=== PATIENT | male | born 1995 | race Hispanic/Latino ===

== ENCOUNTER 2018-08-08 21:52 | Outpatient (REF) | payer SELFPAY ==
[2018-08-08 19:08] VITALS: BP 122/76; PULSE 77; RESP 16; TEMP 36.8; O2SAT 99; BMI 22.2
--- NOTE | 2018-08-08 19:18 | CT_ITS ---
STUDY: CT BRAIN WITHOUT CONTRAST REASON FOR EXAM: Male, 23 years old. Trauma . Tried to strangle himself with a T-shirt RADIATION DOSAGE (If Supplied By Facility): CTDIvol = ( 44.99 ) mGy, DLP = ( 829.85 ) mGycm TECHNIQUE: Transaxial CT imaging of the brain was performed without administration of intravenous contrast material. Individualized dose optimization techniques were used for this CT. COMPARISON: None. FINDINGS: Normal soft tissue structures. Normal calvarium. Normal size ventricles and extra-axial spaces for the patient's age. Normal white matter tracts of the cerebral hemispheres. Normal basal ganglia and thalami. Normal brainstem. Normal cerebellum. There is no intracranial hemorrhage. There are no findings of an acute ischemic infarction. Normal visualized paranasal sinuses. CT/Brain/Head without Contrast IMPRESSION: Normal unenhanced CT scan of the brain. Electronically Signed: Asim Barnes MD at 20:56 EDT , Service support ,
--- NOTE | 2018-08-08 19:18 | CT_ITS ---
STUDY: CTA NECK WITH CONTRAST REASON FOR EXAM: Male, 23 years old. Trauma . Tried to strangle himself with a T-shirt. Suicidal ideation RADIATION DOSAGE (If Supplied By Facility): CTDIvol = ( 20.73 ) mGy, DLP = ( 579.01 ) mGycm Individualized dose optimization techniques were used for this CT. TECHNIQUE: CT angiography with multi-detector data acquisition was performed from the aortic arch to the skull base following intravenous administration of 100ML ml of Isovue 370 contrast. MIP images were reconstructed from the axial data set. Post-processing of the angiographic images was performed, with multiplanar reformation and 3D reconstruction. MIPS images obtained COMPARISON: None. FINDINGS: AORTIC ARCH: Normal visualized aortic arch. Normal origins of the brachiocephalic, left common carotid, and left subclavian arteries. RIGHT CAROTID ARTERIES: Normal right common carotid artery (CCA). Normal right common carotid bulb. Normal origin of the right internal carotid (ICA) artery without a hemodynamically significant stenosis. Normal visualized cervical portion of the right internal carotid artery. Normal origin of the right external carotid artery (ECA). LEFT CAROTID ARTERIES: Normal left common carotid artery (CCA). Normal left common carotid bulb. Normal origin of the left internal carotid (ICA) artery without a hemodynamically significant stenosis. Normal visualized cervical portion of the left internal carotid artery. Normal origin of the left external carotid artery (ECA). VERTEBRAL ARTERIES: Normal bilateral vertebral arteries. CT/CTA Neck W/WO Contrast IMPRESSION: Normal bilateral cervical carotid and vertebral arteries. ALL ABOVE CRITERIA BY NASCET. No evidence for vascular injury. Electronically Signed: Asim Barnes MD at 20:57 EDT , Service support ,
--- NOTE | 2018-08-08 19:18 | EKG12_ITS ---
Test Reason : MHC Blood Pressure : / mmHG Vent. Rate : 060 BPM Atrial Rate : 060 BPM P-R Int : 140 ms QRS Dur : 088 ms QT Int : 392 ms P-R-T Axes : 056 058 045 degrees QTc Int : 392 ms Normal sinus rhythm Normal ECG Confirmed by DANA PHILLIPS, CHUCHO ([id number]), newspaper photo editor TRUNG PADILLA ([id number]) on 08/11/2018 10:10:04 AM Referred By: FABIAN Confirmed By:CHUCHO CORTEZ MD
--- NOTE | 2018-08-08 19:32 | ED.RN ---
JARRET SAW PT IN THE [facility] TODAY. PT IS HERE TO GET MEDICALLY CLEARED TO GO TO [facility] THEN GOING BACK TO [facility].
--- NOTE | 2018-08-08 19:43 | ED.RN ---
PER RH[facility], PT HUNG HIMSELF LAST NIGHT IN THE [facility] WITH A T-SHIRT. HER REPORT WAS THAT HE WAS BLUE AND UNCONSCIOUS.
[2018-08-08 20:03] LABS: Absolute Lymphocyte Count 2.24 X10^3/ul (0.83-4.51); Absolute Neutrophil Count 3.8 X10^3/uL (2.0-7.7); Basophil# 0.04 X10^3/uL; Basophil% 0.5 % (0-1); Eosinophil# 0.73 X10^3/uL; Eosinophils% 9.7 % (0-5); Hematocrit 39.1 % (40-54); Hemoglobin 12.3 g/dl (13.0-16.5); Lymphocyte # 2.24 X10^3/ul (4.0); Lymphocyte % 29.8 % (19-41); Mean Corp Hgb Conc 31.5 g/gl (32-36); Mean Corpuscular Hgb 19.7 pg (27.0-32.0); Mean Corpuscular Volume 62.8 fL (80-94); Monocyte# 0.72 X10^3/uL; Monocyte% 9.6 % (0-10); Neutrophil # 3.78 X10^3/uL (2.7-7.7); Neutrophil % 50.3 % (47-70); Platelet Count 185 K/mm3 (150-450); RBC Distribution Width CV 16.3 % (11.6-14.6); RBC Distribution Width SD 36.1 fl (35.1-43.9); Red Blood Count 6.23 M/mm3 (4.6-6.2); White Blood Count 7.5 K/mm3 (4.4-11.0)
[2018-08-08 20:04] LABS: Differential Indicated SCAN CRITERIA MET; POSITIVE COUNT NO; POSITIVE DIFFERENTIAL NO; POSITIVE MORPHOLOGY YES
[2018-08-08 20:13] LABS: ALB/GLOB Ratio 1.3 RATIO (0.9-2.4); AST(SGOT) 34 U/L (15-37); Alanine Aminotransfer ALT/SGPT 58 U/L (16-61); Albumin, Serum 4.7 g/dL (3.2-5.0); Alkaline Phosphatase 82 U/L (45-117); Anion Gap 8 (5-15); BUN 20 mg/dL (7-18); BUN/Creat Ratio 23.6 RATIO (10-20); Chloride 103 mmol/L (98-107); Creatinine, Serum 0.85 mg/dL (0.70-1.30); EST Glomerular Filtration Rate 120 mL/min (>60); Est Glom Filt Rate - Afr Amer 145 mL/min (>60); Estimated Creatinine Clearance 139.59 ml/min; Globulin 3.6 g/dL (2.2-4.2); Glucose 79 mg/dL (74-106); Protein, Total 8.3 g/dL (6.4-8.2); Sodium Level 141 mmol/L (136-145)
[2018-08-08 20:23] LABS: Differential Comment SCANNED
[2018-08-08 20:44] LABS: Bacteria 0 SEEN /hpf (None Seen); Mucous, Urine 0 SEEN /hpf (<or=2+); Squamous Epithelial Cells - UA 0 SEEN /hpf (0-5)
[2018-08-08 21:00] LABS: Color, Urine Yellow (Yellow); Glucose, Dipstick Normal (Normal); Ketone-Dipstick Negative (Negative); Leukocyte Esterase-Dipstick 25 /ul (Negative); Nitrite-Dipstick Negative (Negative); Occult Blood-Urine Negative /ul (Negative); Protein-Dipstick Negative (Negative); Specific Gravity, Urine 1.015 (1.002-1.030); Urine Bilirubin Dipstick Negative (Negative); Urine Clarity Clear (Clear); Urine Urobilinogen 1 mg/dl (Normal)
[2018-08-08 21:10] LABS: Red Blood Cells-Urine 0-5 SEEN /hpf (0-5); White Blood Cells 0-5 SEEN /hpf (0-5)
[2018-08-08 21:15] LABS: Amphetamine Urine VISTA NEGATIVE (<1000 ng/mL); Barbiturate Urine VISTA NEGATIVE (< 200 ng/mL); Benzodiazepine Urine VISTA NEGATIVE (< 200 ng/mL); Cocaine Urine VISTA NEGATIVE (< 300 ng/mL); Ecstacy Urine VISTA NEGATIVE (< 500 ng/mL); Methadone Urine VISTA NEGATIVE (< 300 ng/mL); PCP Urine VISTA NEGATIVE (< 25 ng/mL); THC Urine VISTA NEGATIVE (< 50 ng/mL); Vista UDS pH Range 7
--- NOTE | 2018-08-08 21:19 | ED.VISSUMM ---
- ER Visit Summary Date of Service: 08/08/18 Chief Complaint: Medical clearance History of Present Illness: The patient is a 23 M who was brought in by law enforcement for medical clearance. The patient is currently in shelter. He is planning to be admitted for psychiatric care at [facility], but needs medical clearance. He did try to choke himself with a T-shirt yesterday evening and complains of some left neck pain near his mandible. No other injuries or complaints. Physical Examination: Afebrile and vital signs unremarkable. Head and neck normal to inspection except for some small petechiae to his anterior neck bilaterally. Neck is nontender. Heart regular rate and rhythm. Lungs clear. Abdomen soft and nontender. Skin otherwise normal. Alert and oriented. Cranial nerves grossly intact. Normal strength and sensation. Test Results: EKG showed sinus rhythm rate of 60. Hemoglobin 12.3 otherwise CBC normal. CMP normal. Urinalysis unremarkable. Tox screen negative. Alcohol negative. CT brain showed nothing acute. CTA neck showed nothing acute. Emergency Department Course and Treatment: Patient had suicide precautions in the emergency department. His workup was unremarkable. He is medically cleared for admission to [facility]. He will be transferred back to shelter while awaiting acceptance at [facility] per crisis. Treatment Plan: As above Disposition: Discharge to shelter Impression: 1. Suicidal ideation 2. Strangulation injury This note was generated with [employer] dictation software. It may contain incorrect words, spelling, and punctuation that were not noted in review of the chart prior to signing ED Disposition - Plan for ED Patient: Chief Complaint: Suicidal Referrals: NOT,DEFINED [Primary Care Provider] -
--- NOTE | 2018-08-08 21:23 | ED.DCSUM_ITS ---
- ER Visit Summary Date of Service: 08/08/18 Chief Complaint: Medical clearance History of Present Illness: The patient is a 23 M who was brought in by law enforcement for medical clearance. The patient is currently in senior care. He is planning to be admitted for psychiatric care at [facility], but needs medical clearance. He did try to choke himself with a T-shirt yesterday evening and complains of some left neck pain near his mandible. No other injuries or complaints. Physical Examination: Afebrile and vital signs unremarkable. Head and neck normal to inspection except for some small petechiae to his anterior neck bilaterally. Neck is nontender. Heart regular rate and rhythm. Lungs clear. Abdomen soft and nontender. Skin otherwise normal. Alert and oriented. Cranial nerves grossly intact. Normal strength and sensation. Test Results: EKG showed sinus rhythm rate of 60. Hemoglobin 12.3 otherwise CBC normal. CMP normal. Urinalysis unremarkable. Tox screen negative. Alcohol negative. CT brain showed nothing acute. CTA neck showed nothing acute. Emergency Department Course and Treatment: Patient had suicide precautions in the emergency department. His workup was unremarkable. He is medically cleared for admission to [facility]. He will be transferred back to senior care while awaiting acceptance at [facility] per crisis. Treatment Plan: As above Disposition: Discharge to senior care Impression: 1. Suicidal ideation 2. Strangulation injury This note was generated with [employer] dictation software. It may contain incorrect words, spelling, and punctuation that were not noted in review of the chart prior to signing ED Disposition - Plan for ED Patient: Chief Complaint: Suicidal Referrals: NOT,DEFINED [Primary Care Provider] -
--- NOTE | 2018-08-08 21:25 | DCINST.ED_ITS ---
ED Disposition - Plan for ED Patient: Chief Complaint: Suicidal Instructions: ED Depression Additional Instructions: follow up at [facility] as planned
[2018-08-08 21:33] VITALS: BP 126/77; PULSE 57; RESP 16; TEMP 36.9; O2SAT 100
== END 2018-08-08 23:00 ==
LOC: ED 21:52
PROVIDERS: Visit Provider Emergency Medicine
DX: R45.851 Suicidal ideations (principal)
CPT/HCPCS: 36415; 70450; 70498; 80053; 80307; 80320; 81001; 85025; 93005; Q9967; A4216; G0480

== ENCOUNTER 2019-05-27 12:23 | Emergency (ER) | payer MEDICAID, SELFPAY ==
[2019-04-08 09:56] VITALS: BMI 23.1
[2019-05-27 12:23] VITALS: BP 146/106; PULSE 107; RESP 14; TEMP 37.4; O2SAT 98; BMI 24.5
[2019-05-27 12:36] VITALS: TEMP 37.1
--- NOTE | 2019-05-27 12:43 | ED.VIS.GEN ---
History of Present Illness Chief Complaint: Dental Informant: Patient Onset: Yesterday Context: Gradual Onset Timing: Continuous Current Severity: Moderate Maximum Severity: Moderate Narrative: Patient presents with left lower dental pain since yesterday. This is constant. No fever chills no dysphasia no diet aphasia. No stridor. No shortness of breath. No facial swelling. Pain is moderate aching. Past Medical History - Allergies and Home Meds Allergies/Adverse Reactions: Allergies No Known Allergies Allergy (Verified 05/27/19 12:25) Primary Care Physician: Care Physician,No Primary [Primary Care Provider] - Prior records reviewed: Yes Past Medical History: - - Psychiatric illness Surgical History: noncontributory Smoking Status: Current every day smoker Drugs: - - Denies current use of any drugs Review of Systems All systems negative except as indicated General: Denies: Fever Eyes: Denies: Visual changes - bilaterally ENT: Reports: - - Dental pain as in HPI Cardiovascular: Denies: Chest pain Respiratory: Denies: Dyspnea Gastrointestinal: Denies: Abdominal pain, Nausea Skin: Denies: Rash Neurological: Denies: Weakness Psych: Reports: Anxiety Physical Exam Vital Signs/Narrative: Vital Signs Temp Pulse Resp BP Pulse Ox 05/27/19 12:36 98.8 F 05/27/19 12:23 99.4 F H 107 H 14 146/106 H 98 General: Well nourished Head: Normocephalic ENT: - - There is tenderness over the left lower second and third molars, no abscess no facial swelling. There is slight tenderness over the masseter muscle. Neck: Supple, Nontender Cardiovascular: Regular rate Respiratory: No distress, CTA bilaterally Extremities: Nontender, No edema Skin: Normal color Neurological: Alert, Oriented x3, Cranial nerves II-XII grossly intact, Normal Strength, Normal Sensation Psychological: - - he appears quite anxious, he has pressured speech. He denies any suicidal ideation. Diagnostic/Tx/Re-eval - Medical Decision Making I will treat the dental pain, I did discuss with him that he appears quite anxious and he is somewhat pressured he apparently is not taking his mood stabilizers, however now he wants to go home and take him since he knows there needed. He has no suicidal ideations. He appears well, he is not acutely psychotic at this time in the emergency department he is lucid coherent and does not want to get any further treatment. I will discharge him. Disposition discharge stable condition ED Disposition - Plan for ED Patient: Disposition: Home or Assisted Living Diagnosis: Pain, dental, Psychosis Instructions: Dental Pain Prescriptions: Naproxen [Naprosyn] 500 mg PO BID PRN #20 tab Prescription Printed Penicillin V Potassium 500 mg PO BID #20 tab Prescription Printed Referrals: Care Physician,No Primary [Primary Care Provider] - 3-5 Days
[2019-05-27] MEDS: Naproxen 250 MG Tablet 500 MG PO (13:22)
[2019-05-27] MEDS: hydrOXYzine PAM 25 MG Capsule 50 MG PO (13:23)
== END 2019-05-27 13:26 | disposition home or self-care (01) ==
PROVIDERS: Emergency Provider Emergency Medicine
DX: K08.89 Other specified disorders of teeth and supporting structures (principal); F29 Unspecified psychosis not due to a substance or known physiological condition; F17.200 Nicotine dependence, unspecified, uncomplicated
CPT/HCPCS: 99283

== ENCOUNTER 2019-05-29 21:09 | Emergency (ER) | payer MEDICAID, SELFPAY ==
[2019-05-29 21:10] VITALS: BP 140/75; PULSE 97; RESP 16; TEMP 36.6; O2SAT 99; BMI 23.4
[2019-05-29 21:54] LABS: Absolute Lymphocyte Count 2.97 X10^3/uL (0.83-4.51); Absolute Neutrophil Count 3.6 X10^3/uL (2.0-7.7); Basophil# 0.05 X10^3/uL; Basophil% 0.6 % (0-1); Eosinophil# 0.47 X10^3/uL; Eosinophils% 5.8 % (0-5); Hematocrit 37.9 % (40-54); Hemoglobin 12.1 g/dL (13.0-16.5); Lymphocyte # 2.97 X10^3/ul (4.0); Lymphocyte % 36.7 % (19-41); Mean Corp Hgb Conc 31.9 g/dL (32-36); Mean Corpuscular Hgb 20.3 pg (27.0-32.0); Mean Corpuscular Volume 63.7 fL (80-94); Mean Platelet Vol. 9.8 fl (6.2-12.0); Monocyte# 1.02 X10^3/uL; Monocyte% 12.6 % (0-10); NRBC Flagged by Analyzer 0 % (0-5); Neutrophil # 3.57 X10^3/uL (2.7-7.7); Neutrophil % 44.2 % (47-70); POSITIVE MORPHOLOGY YES; Platelet Count 261 K/mm3 (150-450); RBC Distribution Width CV 17.2 % (11.6-14.6); RBC Distribution Width SD 34.8 fl (35.1-43.9); Red Blood Count 5.95 M/mm3 (4.6-6.2); White Blood Count 8.1 K/mm3 (4.4-11.0)
[2019-05-29 22:01] LABS: Differential Indicated SCAN CRITERIA MET
[2019-05-29 22:10] VITALS: RESP 16
--- NOTE | 2019-05-29 22:11 | ED.VISSUMM ---
- ER Visit Summary Date of Service: 05/29/19 Chief Complaint: Suicidal and homicidal thoughts while hearing voices History of Present Illness: The patient is a 24 M history of bipolar, schizophrenia and PTSD. Patient is recently been incarcerated has been off his medications. States that his voices are getting worse. They are telling him to harm himself. He has been cutting himself to distract the voices he states. Today he was told either kill himself, stab someone else or go on a shooting spray. He brought himself in the ER to prior to prevent that from occurring. He believes he needs to be admitted again. His last psychiatric admission was within the last several months. Physical Examination: Young male no acute distress vital signs stable and afebrile. HEENT exam unremarkable. Atraumatic. No smell of alcohol. No signs of toxidrome. Pupils are unreactive light. Neck nontender. No signs of trauma. Lungs clear to auscultation bilaterally. Heart regular rhythm no murmur. Chest were nontender. Abdomen soft nontender. Patient moving all 4 extremities. Neurovascular intact. He has some superficial self-inflicted wounds on his left forearm but they did not need to be repaired and currently they are not bleeding. Bilateral hands and feet are neurovascular intact. Back is nontender. Neurologically is awake and alert with no focal motor deficits. Test Results: She is a chronic anemia with hemoglobin of 12. Normal white count. Lites unremarkable potassium 3.2. Normal creatinine and gap. Tox screen positive for amphetamines and cannabis. Alcohol normal. Emergency Department Course and Treatment: ED mental health screening labs. Crisis evaluation. Treatment Plan: Repeat exam the patient is doing well at 2254.Sleeping. Waiting for crisis evaluation. Disposition: Pending crisis evaluation for a psychiatric admission transfer Impression: Acute homicidal and suicidal ideations. Acute exacerbation of underlying psychiatric illness History of schizophrenia and bipolar and PTSD Noncompliant with medications This note was generated with [employer] dictation software. It may contain incorrect words, spelling, and punctuation that were not noted in review of the chart prior to signing ED Disposition - Plan for ED Patient: Referrals: Care Physician,No Primary [Primary Care Provider] -
[2019-05-29 22:13] LABS: Alcohol, Blood (Medical)-Serum < 3.0 mg/dL
[2019-05-29 22:15] LABS: Anion Gap 7 (5-15); BUN 13 mg/dL (7-18); BUN/Creat Ratio 13.7 RATIO (10-20); Calcium,Total 8.4 mg/dL (8.5-10.1); Chloride 107 mmol/L (98-107); Creatinine, Serum 0.95 mg/dL (0.70-1.30); EST Glomerular Filtration Rate 104 mL/min (>60); Est Glom Filt Rate - Afr Amer 126 mL/min (>60); Glucose 100 mg/dL (74-106); Potassium 3.2 mmol/L (3.5-5.1); Sodium Level 139 mmol/L (136-145)
[2019-05-29 22:22] LABS: Differential Comment SCANNED
[2019-05-29 22:53] LABS: Amphetamine Urine VISTA POSITIVE (<1000 ng/mL); Barbiturate Urine VISTA NEGATIVE (< 200 ng/mL); Benzodiazepine Urine VISTA NEGATIVE (< 200 ng/mL); Cocaine Urine VISTA NEGATIVE (< 300 ng/mL); Ecstacy Urine VISTA NEGATIVE (< 500 ng/mL); Methadone Urine VISTA NEGATIVE (< 300 ng/mL); PCP Urine VISTA NEGATIVE (< 25 ng/mL); THC Urine VISTA POSITIVE (< 50 ng/mL); Vista UDS pH Range 6
--- NOTE | 2019-05-29 22:56 | ED.RN ---
[facility]ED [facility]. NOTIFIED THE [facility] THAT THIS PT IS READY TO BE EVALUATED BY [facility].
[2019-05-29 23:00] VITALS: RESP 17
--- NOTE | 2019-05-29 23:12 | ED.RN ---
ARIANNA FROM [facility] SAID SHE WILL BE HERE SOON TO SEE THIS PT.
[2019-05-30] VITALS (15 sets, daily range): BP systolic 96–138; BP diastolic 52–84; PULSE 51–80; RESP 12–18; O2SAT 96–100
--- NOTE | 2019-05-30 05:24 | ED.RN ---
ARIANNA FROM [facility] IS IN THE DEPARTMENT. NOTIFIED HER THAT THIS PT NEEDS TO BE EVALUATED. SHE STATED SHE COULD NOT WAKE THIS PT & WE CAN CALL HER WHEN THIS PT IS AWAKE & READY TO BE EVALUATED.
--- NOTE | 2019-05-30 08:34 | ED.RN ---
KEM [facility] CALLED, STATES HE IS ON HIS WAY
== END 2019-05-30 13:50 | disposition home or self-care (01) ==
LOC: ED 22:29
PROVIDERS: Emergency Provider Emergency Medicine
DX: R45.851 Suicidal ideations (principal); R45.850 Homicidal ideations; F43.10 Post-traumatic stress disorder, unspecified; F31.9 Bipolar disorder, unspecified; F20.9 Schizophrenia, unspecified; Z91.14 Patient's other noncompliance with medication regimen; Z72.0 Tobacco use
CPT/HCPCS: 36415; 80048; 80307; 80320; 85025; 99283; 99284; G0480

== ENCOUNTER 2019-06-19 10:59 | Emergency (ER) | payer MEDICAID, SELFPAY ==
[2019-06-19 10:59] VITALS: BP 133/88; PULSE 135; RESP 17; TEMP 36.6; O2SAT 97; BMI 22.9
--- NOTE | 2019-06-19 11:26 | ED.DCSUM_ITS ---
History of Present Illness Chief Complaint: Med Refill Informant: Patient Onset: Month(s) Current Severity: Mild Narrative: Patient presents requesting refill of his behavioral health medications that he indicates he does not exactly know what they are or the doses he believes he is on some combination of Seroquel lithium BuSpar and other medications, indicates he is followed by the [facility] here locally also followed by psychiatry systems in [facility] get his prescriptions filled [facility] in case he was in [facility] where he was receiving his medicines however when he was released from longterm a few days ago they did not give him his medicines he has no way to get back to [place] to see his providers he has no other complaints he denies psychomotor agitation suicide or homicide Past Medical History - Allergies and Home Meds Allergies/Adverse Reactions: Allergies No Known Allergies Allergy (Verified 06/19/19 10:59) Primary Care Physician: Care Physician,No Primary [Primary Care Provider] - Past Medical History: - Surgical History: noncontributory Smoking Status: Current every day smoker Review of Systems ROS: - Polar disorder General: Denies: Chills, Fever, Sweats Eyes: Denies: Visual changes - bilaterally, Diplopia ENT: Denies: Rhinorrhea, Sore throat Cardiovascular: Denies: Chest pain, Palpitations Respiratory: Denies: Dyspnea, Cough, Dyspnea on exertion Gastrointestinal: Denies: Abdominal pain, Nausea, Vomiting, Diarrhea, Melena, Hematochezia Genitourinary: Denies: Dysuria, Hematuria, Frequency Musculoskeletal: Denies: Back pain, Extremity Pain Skin: Denies: Rash, Wounds Neurological: Denies: Headache, Weakness, Numbness Physical Exam Vital Signs/Narrative: Vital Signs Temp Pulse Resp BP Pulse Ox 06/19/19 10:59 97.9 F 135 H 17 133/88 H 97 General: Well nourished, Well developed, No Acute Distress Head: Normocephalic, Atraumatic Eyes: Perrl, EOMI ENT: Moist mucous membranes, No rhinorrhea Neck: Supple, Nontender Cardiovascular: Regular rate, Regular rhythm, No murmurs Respiratory: No distress, CTA bilaterally, Chest nontender Abdomen: Soft, Nontender, Nondistended, Normal bowel sounds Back: Nontender, Normal Inspection Extremities: Nontender, No edema Skin: Normal color, No rash Neurological: Alert, Oriented x3, Cranial nerves II-XII grossly intact, Normal Strength, Normal Sensation Psychological: Normal affect, Normal Mood Diagnostic/Tx/Re-eval - Medical Decision Making Long conversation with the patient I explained to him is very difficult to understand exactly what medications he would need as he does not even know his med list he is receiving meds from multiple providers whose names he cannot recall, we then did understand from him that he gets his prescriptions filled at [facility] in [place] we spoke with the pharmacist who indicated the patient is receiving Seroquel 100 mg 2 tablets nightly lithium 300 mg 3 times daily but the last refill those prescriptions was sometime in December I explained to the patient we cannot assume his care from the emergency department and I will provide him a refill of these medications for 7 days to provide him the opportunity to reestablish contact with local or of his providers in [place] and further explained to him that refill medications cannot be established to the emergency department we are doing this because of the weekend he understands Final impression behavioral health disorder Home stable ED Disposition - Plan for ED Patient: Diagnosis: Bipolar disorder Instructions: Med Refill, Bipolar Disorder Prescriptions: [place] Carbonate 300 mg PO BID #30 cap Prescription Printed Quetiapine Fumarate [Seroquel] 100 mg PO BID #14 tab Prescription Printed Referrals: Care Physician,No Primary [Primary Care Provider] -
--- NOTE | 2019-06-19 11:32 | ED.DEP ---
ED Disposition - Plan for ED Patient: Diagnosis: Bipolar disorder Instructions: Bipolar Disorder, Med Refill Prescriptions: [place] Carbonate 300 mg PO BID #30 cap Prescription Printed Quetiapine Fumarate [Seroquel] 100 mg PO BID #14 tab Prescription Printed Referrals: Care Physician,No Primary [Primary Care Provider] - Additional Instructions: Follow-up with your outpatient providers, medication refills cannot be provided by the emergency department
[2019-06-19] MEDS: QUEtiapine 100 MG Tablet PO (12:05)
[2019-06-19] MEDS: Lithium Carbonate 300mg Capsule 300 MG PO (12:05)
== END 2019-06-19 12:08 | disposition home or self-care (01) ==
LOC: ED 11:26
PROVIDERS: Emergency Provider Emergency Medicine
DX: F31.9 Bipolar disorder, unspecified (principal); Z76.0 Encounter for issue of repeat prescription; F17.200 Nicotine dependence, unspecified, uncomplicated
CPT/HCPCS: 99282

== ENCOUNTER 2019-07-20 19:26 | Emergency (ER) | payer MEDICAID, SELFPAY ==
[2019-07-20 19:28] VITALS: BP 138/92; PULSE 88; RESP 18; TEMP 37; O2SAT 99; BMI 21.7
--- NOTE | 2019-07-20 19:55 | RAD_ITS ---
STUDY: X-RAY - RIGHT HAND REASON FOR EXAM: Male, 24 years old. Trauma TECHNIQUE: 3 view(s) of the hand. COMPARISON: None. FINDINGS: There is no evidence of fracture or dislocation. There are no significant degenerative changes. There are no radiodense foreign bodies. RAD/Hand Min 3 Views IMPRESSION: No fracture or dislocation. Electronically Signed: Magdi Encarnacion, at 21:06 EDT Tel , Service support ,
--- NOTE | 2019-07-20 20:18 | ED.VISSUMM ---
- ER Visit Summary Date of Service: 07/20/19 Chief Complaint: Hand pain History of Present Illness: The patient is a 24 M who was found downtown reportedly drinking alcohol. He denies this and he denies any drug use. He tells me that about 3 days ago he punched something. He tells me he does not wish to tell me what that is. He cannot tell me why he has scratches on his arms. He tells me that the only reason is he is here is to figure out what is going on with his hand. Physical Examination: Afebrile vital signs stable Gen: Well-nourished well-developed Head: Normocephalic atraumatic Eyes: Perrl EOMI ENT: TMs clear no rhinorrhea moist mucous membranes Neck: Supple no lymphadenopathy no JVD nontender CVS: Regular rate rhythm no murmurs normal S1-S2 Respiratory: No distress clear to auscultation bilaterally chest nontender Abdomen: Soft nontender nondistended normal bowel sounds no masses Back: Nontender Extremity: There is swelling over the dorsum of the right hand. Full range of motion. No breaks in the skin. No evidence of infection. Skin: Normal color no rash Neuro: alert orientated ?3 CN II-XII intact patient is extremely fidgety to the point where he puts his hands in his pockets to hold still. Psych: She is agitated denies suicidal homicidal ideation Test Results: Right hand x-rays were negative for fracture Emergency Department Course and Treatment: Patient will be discharged home prescription for naproxen will be given. Impression: 1. Right hand contusion This note was generated with [employer] dictation software. It may contain incorrect words, spelling, and punctuation that were not noted in review of the chart prior to signing ED Disposition - Plan for ED Patient: Disposition: Home or Assisted Living Instructions: CONTUSION, Hand Prescriptions: Naproxen [Naprosyn] 500 mg PO BID #14 tab Prescription Printed Referrals: Lalita Melendez MD [COURTESY STAFF PHYSICIAN] - 10-14 Days if not better
== END 2019-07-20 21:26 | disposition home or self-care (01) ==
PROVIDERS: Emergency Provider Emergency Medicine
DX: S60.221A Contusion of right hand, initial encounter (principal); Z72.0 Tobacco use; W22.8XXA Striking against or struck by other objects, initial encounter; Y93.89 Activity, other specified; Y92.89 Other specified places as the place of occurrence of the external cause; Y99.8 Other external cause status
CPT/HCPCS: 73130; 99284

== ENCOUNTER 2019-09-08 12:32 | Emergency (ER) | payer MEDICAID, SELFPAY ==
[2019-09-08 12:33] VITALS: BP 136/75; PULSE 100; RESP 20; TEMP 36.4; O2SAT 99; BMI 29.0
--- NOTE | 2019-09-08 12:47 | ED.VISSUMM ---
- ER Visit Summary Date of Service: 09/08/19 Chief Complaint: Hand pain History of Present Illness: The patient is a 24 M with right hand pain for days. He punched a wall 4 or 6 weeks ago. He was worried that it just did not heal properly. It has started to affect his work. He does not take any meds for this. He is not taking his prescribed meds, as he said it is too far to get to his psychiatrist. He is not suicidal or homicidal. He is able to take care of himself. Physical Examination: Afebrile and vital signs unremarkable. Right hand is tender to palpation over the third and fourth MCP joints. Skin intact. Range of motion normal. No obvious deformity. Patient is anxious but denies any suicidal or homicidal thoughts. Test Results: X-rays pending. Emergency Department Course and Treatment: Patient treated with naproxen. Will check x-rays. Patient has underlying schizophrenia and bipolar disease. He has some symptoms, but is not a harm to himself or others. He does not need inpatient care. I will speak with social work. She will evaluate the patient for a new referral. Patient was advised that if his mental health symptoms are out of control, he should return to the ED, and we will help him. X-rays negative. Rest, ice, elevate. Anti-inflammatories for pain. Follow-up as advised by social work for mental health issues. Treatment Plan: As above Disposition: Discharge Impression: Right hand pain This note was generated with [employer] dictation software. It may contain incorrect words, spelling, and punctuation that were not noted in review of the chart prior to signing ED Disposition - Plan for ED Patient: Referrals: Care Physician,No Primary [Primary Care Provider] -
--- NOTE | 2019-09-08 12:50 | RAD_ITS ---
STUDY: X-RAY - RIGHT HAND REASON FOR EXAM: Male, 24 years old. Pain and swelling TECHNIQUE: 3 view(s) of the hand. COMPARISON: 07/20/2019 FINDINGS: Normal radiocarpal articulation. Normal distal radioulnar joint. Normal visualized carpal bones. Normal carpal articulations Normal carpometacarpal articulation of the thumb. Normal second through fifth carpometacarpal joints. Normal metacarpi. Old healed fifth metacarpal fracture Normal metacarpophalangeal joint of the thumb. Normal interphalangeal joint of the thumb. Normal proximal and distal phalanges of the thumb. Normal metacarpophalangeal joints of the second through fifth fingers. Normal proximal and distal interphalangeal joints of the second through fifth fingers. Normal phalanges of the second through fifth fingers. The soft tissue structures are unremarkable. RAD/Hand Min 3 Views IMPRESSION: Normal x-ray examination of the hand. No interval change Electronically Signed: Jean Crawford MD at 13:55 EST , Service support ,
[2019-09-08] MEDS: Naproxen 500 MG Tablet PO (12:58)
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
--- NOTE | 2019-09-08 13:59 | ED.DEP ---
ED Disposition - Plan for ED Patient: Instructions: [facility] Referrals: Katie Rodriguez [NON-STAFF] - Additional Instructions: follow up as advised by social work
[2019-09-08 14:05] VITALS: BP 117/62; PULSE 61; RESP 15; O2SAT 97
== END 2019-09-08 14:06 | disposition home or self-care (01) ==
LOC: ED 12:50
PROVIDERS: Emergency Provider Emergency Medicine
DX: M79.641 Pain in right hand (principal); F20.9 Schizophrenia, unspecified; F31.9 Bipolar disorder, unspecified; Z91.14 Patient's other noncompliance with medication regimen; Z72.0 Tobacco use
CPT/HCPCS: 73130; 99283

== ENCOUNTER 2019-09-08 18:50 | Emergency (ER) | payer MEDICAID, SELFPAY ==
[2019-09-08 12:33] VITALS: BMI 29.0
[2019-09-08 18:52] VITALS: BP 151/97; PULSE 78; RESP 16; TEMP 36.7; O2SAT 98; BMI 22.8
[2019-09-08 19:36] LABS: Anion Gap 8 (5-15); BUN 16 mg/dL (7-18); BUN/Creat Ratio 18.9 RATIO (10-20); Calcium,Total 8.9 mg/dL (8.5-10.1); Chloride 107 mmol/L (98-107); Creatinine, Serum 0.85 mg/dL (0.70-1.30); EST Glomerular Filtration Rate 119 mL/min (>60); Est Glom Filt Rate - Afr Amer 144 mL/min (>60); Estimated Creatinine Clearance 142.43 ml/min; Glucose 82 mg/dL (74-106); Potassium 3.3 mmol/L (3.5-5.1); Sodium Level 141 mmol/L (136-145)
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
[2019-09-08 19:48] LABS: Absolute Lymphocyte Count 1.65 X10^3/uL (0.83-4.51); Absolute Neutrophil Count 3.4 X10^3/uL (2.0-7.7); Basophil# 0.04 X10^3/uL; Basophil% 0.6 % (0-1); Eosinophil# 0.45 X10^3/uL; Hematocrit 37.7 % (40-54); Hemoglobin 11.8 g/dL (13.0-16.5); Lymphocyte # 1.65 X10^3/ul (4.0); Lymphocyte % 25.7 % (19-41); Mean Corp Hgb Conc 31.3 g/dL (32-36); Mean Corpuscular Hgb 19.6 pg (27.0-32.0); Mean Corpuscular Volume 62.7 fL (80-94); Mean Platelet Vol. 10.6 fl (6.2-12.0); Monocyte# 0.87 X10^3/uL; Monocyte% 13.6 % (0-10); NRBC Flagged by Analyzer 0 % (0-5); Neutrophil % 52.9 % (47-70); Platelet Count 234 K/mm3 (150-450); RBC Distribution Width CV 17.3 % (11.6-14.6); RBC Distribution Width SD 34.1 fl (35.1-43.9); Red Blood Count 6.01 M/mm3 (4.6-6.2); White Blood Count 6.4 K/mm3 (4.4-11.0)
[2019-09-08 20:00] LABS: Alcohol, Blood (Medical)-Serum < 3.0 mg/dL
[2019-09-08 20:24] VITALS: BP 131/63; PULSE 60; RESP 16; O2SAT 99
[2019-09-08 21:06] LABS: Amphetamine Urine VISTA POSITIVE (<1000 ng/mL); Barbiturate Urine VISTA NEGATIVE (< 200 ng/mL); Benzodiazepine Urine VISTA NEGATIVE (< 200 ng/mL); Cocaine Urine VISTA NEGATIVE (< 300 ng/mL); Ecstacy Urine VISTA NEGATIVE (< 500 ng/mL); Methadone Urine VISTA NEGATIVE (< 300 ng/mL); PCP Urine VISTA NEGATIVE (< 25 ng/mL); THC Urine VISTA POSITIVE (< 50 ng/mL); Vista UDS pH Range 5
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
--- NOTE | 2019-09-08 21:17 | CM.ED ---
Social Work Patient medically cleared per Dr. Barbosa. Telephone call to [facility], they do accept patient insurance and they have open beds. Referral faxed. Pending approval. Kamar SOLIS, JEF
--- NOTE | 2019-09-08 22:02 | CM.ED ---
Social Work Telephone call from Bernadine Brock. Patient has been accepted. Nurse to Nurse Report: [phone]. Accepting: [facility] Unit: [address] [place]. [place] [facility] faxed. Updated patient and medical team all agreeable with plan. [facility] to set up transportation. PLAN: Discharge to [facility]. Kamar SOLIS, JEF
[2019-09-08 22:22] VITALS: BP 131/63; PULSE 60; RESP 16; O2SAT 99
[2019-09-08 23:00] VITALS: RESP 16
[2019-09-09] VITALS (7 sets, daily range): BP systolic 120–128; BP diastolic 60–67; PULSE 58–67; RESP 15–17; O2SAT 97–99
== END 2019-09-09 08:05 ==
LOC: ED 19:06
PROVIDERS: Emergency Provider Emergency Medicine
DX: R45.851 Suicidal ideations (principal); R45.850 Homicidal ideations
CPT/HCPCS: 36415; 73130; 80048; 80307; 80320; 85025; 99283; 99285; G0480